=== PATIENT | female | born 1980 | race Caucasian/White ===

== ENCOUNTER 2018-09-16 02:24 | Emergency (ER) | payer OTHER ==
[~2018-09-16] VITALS: Ht 177.8 cm; Wt 56.7 kg
[2018-09-16] MEDS ORDERED: WELLBUTRIN XL150 M1 PO (02:37)
[2018-09-16] MEDS ORDERED: INTESTINEX680 M1 PO (05:02)
[2018-09-16] MEDS ORDERED: CELECOXIB200 MG PO (05:02)
[2018-09-16] MEDS ORDERED: BACTRIM DS TAB1 EACH PO (05:02)
[2018-09-16] MEDS ORDERED: ORPHENADRINE C100 MG PO (05:02)
== END 2018-09-16 05:17 | disposition home or self-care (01) ==
LOC: ER 02:24
DX: S51.022A Laceration with foreign body of left elbow, initial encounter (principal); W18.39XA Other fall on same level, initial encounter; Y93.89 Activity, other specified; Y92.59 Other trade areas as the place of occurrence of the external cause; Y99.8 Other external cause status